=== PATIENT | female | born 1955 | race Caucasian/White ===

== ENCOUNTER 2016-04-16 10:30 | Outpatient (RCR) | payer BC ==
[~2016-04-16 10:30] MED LIST: ATENOLOL25 MG PO; CYANOCOBAL1000 MCG/1 IM; FOLIC ACID 11 MG/TA1 PO; KLOR-CON M2020 MEQ PO; MAG-OX 400400 MG/TAB PO; NORCO 325 MG-51 TAB PO; PROTONIX 40MG T40 MG PO; ULTRAM 50MG TAB50 MG PO; VITAMIN B11000 MCG/M IM; ZOFRAN ODT4 MG PO
== END 2016-04-20 | disposition still patient (30) ==
LOC: MKS.ESL.PT
DX: R53.81 Other malaise (principal)
CPT/HCPCS: G0283-GP

== ENCOUNTER 2016-05-22 13:00 | Outpatient (RCR) | payer BC | END 2016-07-22 | disposition home or self-care (01) | LOC: MKS.ESL.PT | DX: R53.81 Other malaise (principal) | CPT/HCPCS: G0283-GP ==

== ENCOUNTER 2016-10-03 10:30 | Outpatient (RCR) | payer BC | END 2016-10-21 | LOC: MKS.ESL.PT | DX: R53.81 Other malaise (principal) | CPT/HCPCS: G0283-GP ==